=== PATIENT | female | born 1985 | race Caucasian/White ===

== ENCOUNTER 2017-07-21 13:12 | Emergency (ER) | payer BC ==
[2017-07-21 14:28] VITALS: BP 119/65
--- NOTE | 2017-07-21 14:51 | UC ---
Knee Pain HPI - HPI Summary HPI Summary: 32 yo female with right popliteal knee pain and fullness x 2 weeks no injury has not limited her activity this AM right calf felt swollen but now it is normal no calf pain knee not buckling or giving away - History of Current Complaint Chief Complaint: UCLowerExtremity Stated Complaint: KNEE PAIN LEG SWOLLEN Time Seen by Provider: 07/21/17 14:37 Hx Obtained From: Patient Hx Last Menstrual Period: 07/10/17 Onset/Duration: Gradual Onset, Lasting Weeks Severity Initially: Mild Severity Currently: Mild Pain Intensity: 2 Pain Scale Used: 0-10 Numeric Character: Sharp Aggravating Factor(s): Stairs Alleviating Factor(s): Nothing Associated Signs And Symptoms: Positive: Swelling - right calf this AM..now resolved Able to Bear Weight: Yes - Allergies/Home Medications Allergies/Adverse Reactions: Allergies Allergy/AdvReac Type Severity Reaction Status Date / Time No Known Allergies Allergy Verified 07/21/17 14:20 Home Medications: Home Medications Multiple Vitamins W/ Minerals [Multivitamin Adults] 1 tab PO 07/21/17 [History] PMH/Surg Hx/FS Hx/Imm Hx Previously Healthy: Yes - Surgical History Surgical History: Yes Surgery Procedure, Year, and Place: Ovarian drilling 2008. appendectomy 2014 - Family History Known Family History: Positive: Cardiac Disease, Hypertension, Diabetes, Other - NO Hx DVT - Social History Alcohol Use: Rare Substance Use Type: None Smoking Status (MU): Former Smoker Type: Cigarettes Length of Time of Smoking/Using Tobacco: 3-4 years Have You Smoked in the Last Year: No When Did the Patient Quit Smoking/Using Tobacco: 2002 - Immunization History Most Recent Influenza Vaccination: [id number] Most Recent Tetanus Shot: unkown Most Recent Pneumonia Vaccination: none Review of Systems Constitutional: Negative Skin: Negative Eyes: Negative ENT: Negative Respiratory: Negative Cardiovascular: Negative Gastrointestinal: Negative Genitourinary: Negative Motor: Negative Neurovascular: Negative Musculoskeletal: Arthralgia Neurological: Negative Psychological: Negative Is Patient Immunocompromised?: No All Other Systems Reviewed And Are Negative: Yes Physical Exam Triage Information Reviewed: Yes Appearance: Well-Appearing, No Pain Distress, Well-Nourished Vital Signs: Initial Vital Signs Temp 98.6 F 07/21/17 14:21 Pulse 70 07/21/17 14:21 Resp 16 07/21/17 14:21 BP 119/65 07/21/17 14:21 Pulse Ox 100 07/21/17 14:21 Vital Signs Reviewed: Yes Eyes: Positive: Conjunctiva Clear ENT: Positive: Hearing grossly normal. Negative: Nasal congestion, Nasal drainage, Tonsillar swelling, Tonsillar exudate, Trismus, Muffled/hoarse voice Neck: Positive: Supple, Nontender Respiratory: Positive: Lungs clear, No respiratory distress, No accessory muscle use, Respiratory distress Cardiovascular: Positive: RRR, No Murmur Musculoskeletal: Positive: ROM Intact, No Edema, Other: - at 10 and 20 cm below tibial tubercle there is no difference in circumfirance. Negative: Edema @ Neurological: Positive: Alert Psychological Exam: Normal Skin Exam: Normal Diagnostics - Radiology No standard instances Xray Interpretation: Positive (See Comments) - Small popliteal cyst corresponding with the region of pain Radiology Interpretation Completed By: Radiologist Knee Pain Course/Dx - Differential Dx/Diagnosis Provider Diagnoses: right knee Anderson's cyst Discharge - Discharge Plan Condition: Stable Disposition: HOME Patient Education Materials: Bakers Cyst (ED) Referrals: Augustina Dawn MD [Primary Care Provider] - If Needed Additional Instructions: advil or aleve as needed for pain I suggest you see an orthopedist Dr. Cavanaugh is engineering inspection assistant [phone] please call and make an appt
--- NOTE | 2017-07-21 15:52 | RAD ---
Indication: RIGHT popliteal region pain for 2 weeks. Question Anderson's cyst. Comparison: No relevant prior exams available on the [facility] PACS for comparison. Technique: Ultrasound of the RIGHT popliteal fossa. Doppler utilized. Report: Patency of the RIGHT popliteal artery and vein documented. Negative for aneurysm of the popliteal artery. Patent gastrocnemius veins visualized. 1.8 x 0.6 x 1.2 cm popliteal cyst corresponding with the region of pain. No surrounding infiltrative fluid evident to suggest recent popliteal cyst rupture. IMPRESSION: Small popliteal cyst corresponding with the region of pain.
== END 2017-07-21 16:16 | disposition home or self-care (01) ==
LOC: UCEAST 13:12
DX: M71.21 Synovial cyst of popliteal space [Baker], right knee (principal); Z87.891 Personal history of nicotine dependence
CPT/HCPCS: 99211; G0463

== ENCOUNTER 2018-01-01 18:44 | Emergency (ER) | payer BC ==
[2018-01-01 18:57] VITALS: BP 125/81
[2018-01-01] MEDS ORDERED: Amoxicillin/Clavulanate TAB* 875 MG PO ONE ×2 (19:51→19:52)
--- NOTE | 2018-01-01 20:27 | UC ---
Paulo Reyes Natalie, scribed for Josh Foster MD on 01/01/18 at 2021 . Throat Pain/Nasal Myke HPI - HPI Summary HPI Summary: The patient is a 32 y/o F presenting to [facility] c/o sore throat and ear ache starting three days ago. The pain is rated 5/10. She denies fever. Her two daughters have both been diagnosed with strep throat since 12/28/17. - History of Current Complaint Chief Complaint: UCGeneralIllness Stated Complaint: SORE THROAT,EAR PAIN Time Seen by Provider: 01/01/18 19:47 Hx Obtained From: Patient Hx Last Menstrual Period: 12/10/17 Onset/Duration: Lasting Days - starting yesterday, Still Present Pain Intensity: 5 Pain Scale Used: 0-10 Numeric Associated Signs & Symptoms: Positive: Other - ear ache, sore throat. Negative : Fever - Allergies/Home Medications Allergies/Adverse Reactions: Allergies Allergy/AdvReac Type Severity Reaction Status Date / Time No Known Allergies Allergy Verified 07/21/17 14:20 Home Medications: Home Medications Ibuprofen [Advil] 200 mg PO 01/01/18 [History] PMH/Surg Hx/FS Hx/Imm Hx - Surgical History Surgical History: Yes Surgery Procedure, Year, and Place: Ovarian drilling 2008. appendectomy 2014 - Family History Known Family History: Positive: Cardiac Disease, Hypertension, Diabetes, Other - NO Hx DVT - Social History Alcohol Use: Rare Substance Use Type: None Smoking Status (MU): Former Smoker Type: Cigarettes Length of Time of Smoking/Using Tobacco: 3-4 years Have You Smoked in the Last Year: No When Did the Patient Quit Smoking/Using Tobacco: 2002 - Immunization History Most Recent Influenza Vaccination: [id number] Most Recent Tetanus Shot: unkown Most Recent Pneumonia Vaccination: none Review of Systems Constitutional: Other - NEGATIVE: fever ENT: Sore Throat, Ear Ache All Other Systems Reviewed And Are Negative: Yes Physical Exam Triage Information Reviewed: Yes Appearance: Well-Appearing, No Pain Distress Vital Signs: Initial Vital Signs Temp 98.3 F 01/01/18 18:51 Pulse 83 01/01/18 18:51 Resp 16 01/01/18 18:51 BP 125/81 01/01/18 18:51 Pulse Ox 100 01/01/18 18:51 Vital Signs Reviewed: Yes Eyes: Positive: Other: - EOMI, EVER ENT: Positive: TMs normal, Other - posterior pharynx erythema and open, positive rhinorrhea Neck: Positive: Supple, Nontender Respiratory: Positive: Other: - CTA, breath sounds present Cardiovascular: Positive: RRR Abdomen Description: Positive: Nontender, Soft Bowel Sounds: Positive: Present Musculoskeletal Exam: Normal Musculoskeletal: Positive: Strength Intact, ROM Intact Neurological: Positive: Other: - normal, sensory/motor intact, A&O x3 Psychological: Positive: Other: - affect/mood appropriate Skin: Positive: Other - warm, color reflects adequate perfusion, dry Throat Pain/Nasal Course/Dx - Course Course Of Treatment: Medications reviewed. Allergies noted. - Differential Dx/Diagnosis Provider Diagnoses: PHARYNGITIS Discharge - Sign-Out/Discharge Documenting (check all that apply): Discharge - Discharge Plan Condition: Stable Disposition: HOME Discharge Disposition Comment: The pt will be discharged home. Prescriptions: Amoxicillin PO (*) [Amoxicillin 875 MG (*)] 875 mg PO BID #18 tab Patient Education Materials: Pharyngitis (ED) Referrals: Augustina Dawn MD [Primary Care Provider] - Additional Instructions: FOLLOW UP WITH YOUR DOCTOR. GET RECHECKED FOR ANY WORSENING OF YOUR CONDITION OR QUESTIONS OR CONCERNS. - Billing Disposition and Condition Condition: STABLE Disposition: HOME The documentation as recorded by the Paulo monroe Natalie accurately reflects the service I personally performed and the decisions made by me, Josh Foster MD.
== END 2018-01-01 20:28 | disposition home or self-care (01) ==
LOC: UCEAST 18:44
DX: J02.9 Acute pharyngitis, unspecified (principal); Z87.891 Personal history of nicotine dependence
CPT/HCPCS: 99212; A9270-GY; G0463

== ENCOUNTER 2018-02-02 19:57 | Emergency (ER) | payer BC, OTHER ==
[2018-02-02 20:10] VITALS: BP 111/78
[2018-02-02] MEDS ORDERED: Amoxicillin PO (*) 500 MG CAP PO ONE (20:54)
--- NOTE | 2018-02-02 21:10 | UC ---
Throat Pain/Nasal Myke HPI - HPI Summary HPI Summary: Patient is a 32-year-old female presenting to the with chief complaint of throat pain. She endorses two sick contacts at home who have been tested for positive strep. He is she endorses dysphagia and odynophagia. She feels she has enlarged tonsils. Denies any fevers, sweats, chills. She denies any chest pain or shortness of breath. Denies any headache or visual changes. History of strep and states this feels the same. She has tried ibuprofen and Tylenol without much relief. - History of Current Complaint Chief Complaint: UCRespiratory Stated Complaint: SORE THROAT Time Seen by Provider: 02/02/18 20:16 Hx Obtained From: Patient Hx Last Menstrual Period: 01/13/18 ?: No Onset/Duration: Sudden Onset Severity: Mild Pain Intensity: 3 Pain Scale Used: 0-10 Numeric - Epiglottits Risk Factors Epiglottis Risk Factors: Negative - Allergies/Home Medications Allergies/Adverse Reactions: Allergies Allergy/AdvReac Type Severity Reaction Status Date / Time No Known Allergies Allergy Verified 02/02/18 20:05 PMH/Surg Hx/FS Hx/Imm Hx Previously Healthy: Yes - Surgical History Surgical History: Yes Surgery Procedure, Year, and Place: Ovarian drilling 2008. appendectomy 2014 - Family History Known Family History: Positive: Cardiac Disease, Hypertension, Diabetes, Other - NO Hx DVT - Social History Occupation: Employed Full-time Lives: With Family Alcohol Use: Rare Substance Use Type: None Smoking Status (MU): Former Smoker Type: Cigarettes Length of Time of Smoking/Using Tobacco: 3-4 years Have You Smoked in the Last Year: No When Did the Patient Quit Smoking/Using Tobacco: 2002 - Immunization History Most Recent Influenza Vaccination: [id number] Most Recent Tetanus Shot: unknown Most Recent Pneumonia Vaccination: none Review of Systems Constitutional: Negative Skin: Negative ENT: Sore Throat Respiratory: Negative Cardiovascular: Negative Motor: Negative Neurovascular: Negative Neurological: Negative Psychological: Negative Is Patient Immunocompromised?: No All Other Systems Reviewed And Are Negative: Yes Physical Exam Triage Information Reviewed: Yes Appearance: Well-Appearing, Well-Nourished Vital Signs: Initial Vital Signs Temp 97.9 F 02/02/18 20:06 Pulse 85 02/02/18 20:06 Resp 18 02/02/18 20:06 BP 111/78 02/02/18 20:06 Pulse Ox 100 02/02/18 20:06 Vital Signs Reviewed: Yes Eye Exam: Normal Eyes: Positive: Conjunctiva Clear ENT: Positive: Pharyngeal erythema. Negative: TM dull, TM red, Tonsillar swelling, Tonsillar exudate, Hoarse voice, Dental tenderness - Thank you, Sinus tenderness Neck: Positive: Supple, Nontender, No Lymphadenopathy Respiratory: Positive: Chest non-tender, Lungs clear Cardiovascular: Positive: RRR Neurological Exam: Normal Neurological: Positive: Alert Psychological: Positive: Normal Response To Family Skin Exam: Normal Throat Pain/Nasal Course/Dx - Course Course Of Treatment: during the course of treatment, the patient is evaluated for strep throat versus pharyngitis versus other etiology. Strep negative. Due to her long history of strep in 2 current strep positive sick contacts at home and symptoms I will cover for a seven-day course of amoxicillin and we will send the the swab for culture. She is okay with this plan. I have encouraged her Cepacol tabs and Tylenol and ibuprofen [id number]. - Differential Dx/Diagnosis Provider Diagnoses: Pharyngitis Discharge - Sign-Out/Discharge Documenting (check all that apply): Discharge/Admit/Transfer - Discharge Plan Condition: Stable Disposition: HOME Prescriptions: Amoxicillin PO (*) [Amoxicillin 500 MG CAP*] 500 mg PO Q12H #14 cap Patient Education Materials: Pharyngitis (ED) Referrals: Augustina Dawn MD [Primary Care Provider] - Additional Instructions: I have given you amoxicillin 500 mg tabs twice daily 7 days Cepacol tabs for any throat discomfort - Billing Disposition and Condition Condition: STABLE Disposition: HOME
== END 2018-02-02 21:10 | disposition home or self-care (01) ==
LOC: UCEAST 19:57
DX: J02.9 Acute pharyngitis, unspecified (principal); Z87.891 Personal history of nicotine dependence
CPT/HCPCS: 87651; 99212; A9270-GY; G0463